=== PATIENT | female | born 1985 | race Two or more races ===

== ENCOUNTER → 2019-10-15 | Outpatient (CLI) | payer BC ==
[~2019-10-15] MED LIST: DIATRIZOATE MEGL/DIATRIZOA SOD 30 ML BTL PO ONE; IOPAMIDOL 370 MG/ML 200 ML INFUS..BTL INJ ONE; SODIUM CHLORIDE 0.9% 50ML 50 ML ONE
--- NOTE | 2019-10-15 15:53 | Diagnostic Imaging Report ---
EXAM: CT Abdomen and Pelvis WITH contrast INDICATION: ^[id number] ^[id number] ^ABDOMINAL PAIN COMPARISON: None. TECHNIQUE: Abdomen and pelvis were scanned utilizing a multidetector helical scanner from the lung base to the pubic symphysis after administration of IV contrast. Coronal and sagittal reformations were obtained. Routine protocol was performed. Scan was performed when during portal venous phase. IV CONTRAST: 100 mL of Isovue-370 ORAL CONTRAST: Gastrografin RADIATION DOSE: Total DLP: 264.6 mGy*cm Estimated effective dose: (DLP x 0.015 x size factor) mSv COMPLICATIONS: None FINDINGS: LINES and TUBES: None. LOWER THORAX: Unremarkable HEPATOBILIARY: No focal hepatic lesions. No biliary ductal dilation. GALLBLADDER: No radio-opaque stones or sludge. No wall thickening. SPLEEN: No splenomegaly. PANCREAS: No focal masses or ductal dilatation. ADRENALS: No adrenal nodules KIDNEYS/URETERS: Kidneys enhance symmetrically. No hydronephrosis. No cystic or solid mass lesions. No stones. GI TRACT: Diffuse nodular wall thickening of the cecum and terminal ileum in the right lower quadrant, better seen on series 2, image 52 and 47. In addition, there is mild diffuse wall thickening of multiple loops of small bowel throughout the abdomen, worse in the left abdomen with surrounding mild fat stranding but no fluid collections or abscess. This is better seen on series 2, images 33-39. There is also mild circumferential wall thickening of the gastric antrum. The appendix is not well-visualized on this exam. PELVIC ORGANS/BLADDER: Multi fibroid uterus. The urinary bladder is moderately distended. No adnexal masses. LYMPH NODES: No lymphadenopathy. VESSELS: Unremarkable. PERITONEUM / RETROPERITONEUM: No free air or fluid. BONES: Unremarkable. SOFT TISSUES: Unremarkable. IMPRESSION: CT findings highly suggestive of diffuse gastroenteritis with suspected background of chronic inflammatory bowel disease such as Crohn's disease. Recommend GI consultation. No free fluid, free air, or abscess in the abdomen or pelvis. Signed by: Dr. Claudia Fierro M.D. on 10/15/2019 3:50 PM
== END ==
LOC: CT 13:17
PROVIDERS: ATTEND Surgery
DX: R10.9 Unspecified abdominal pain (principal); D25.9 Leiomyoma of uterus, unspecified
CPT/HCPCS: 74177; 81025; Q9967